=== PATIENT | male | born 1975 | race Caucasian/White ===

== ENCOUNTER 2018-01-26 09:36 | Day surgery (SDC) | payer OTHER ==
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
[2018-01-26] MEDS ORDERED: ACETAMINOPHEN 500 MG TAB PO ONE (09:42)
[2018-01-26] MEDS ORDERED: CLINDAMYCIN 900 MG/DEXTROSE 50 ML IV ONE (09:42)
[2018-01-26] MEDS ORDERED: PREGABALIN 150 MG CAP PO ONE (09:42)
[2018-01-26] MEDS ORDERED: BUPIVACAINE 0.25% 30 ML SDV ONE (09:56)
[2018-01-26] MEDS ORDERED: EPINEPHrine 30 MG/30 ML MDV (0.1 MG/0.1 ML) ONE ×2 (09:57→10:52)
[2018-01-26] MEDS ORDERED: LR 1,000 ML IV ONE (10:30)
[2018-01-26] MEDS ORDERED: MIDAZOLAM 2 MG/2 ML VIAL ONE (11:23)
[2018-01-26] MEDS ORDERED: SCOPOLAMINE HYDROBROMIDE 1 MG/3 DAYS PATCH TD ONE ×2 (11:23→11:30)
[2018-01-26] MEDS ORDERED: MIDAZOLAM 2 MG/2 ML VIAL IVP ONE (11:27)
--- NOTE | 2018-01-26 11:28 | PDANEPAE ---
ANE Past Medical History - Cardiovascular History Hx Hypertension: No Hx Arrhythmias: No Hx Chest Pain: No Hx Coronary Artery / Peripheral Vascular Disease: No Hx CHF / Valvular Disease: No Hx Palpitations: No - Pulmonary History Hx COPD: No Hx Asthma/Reactive Airway Disease: No Hx Recent Upper Respiratory Infection: No Hx Oxygen in Use at Home: No Hx Sleep Apnea: No Sleep Apnea Screening Result - Last Documented: Negative Pulmonary History Comment: BRONCHITIS IN PAST - Neurologic History Hx Cerebrovascular Accident: No Hx Seizures: No Hx Dementia: No - Endocrine History Hx Diabetes: No - Renal History Hx Renal Disorders: No Renal History Comment: KIDNEY STONE A998 - Liver History Hx Hepatic Disorders: No - Neurological & Psychiatric Hx Hx Neurological and Psychiatric Disorders: No Neurological / Psychiatric History Comment: ANXIETY - Cancer History Hx Cancer: No - Congenital Disorder History Hx Congenital Disorders: No - GI History Hx Gastrointestinal Disorders: No - Other Health History Other Health History: NEG - Chronic Pain History Chronic Pain: No - Surgical History Prior Surgeries: L HIP ARTHROSCOPY/ LABARAL REPAIR. SHRADDHA KNEE SURGERY ANE Review of Systems Review of Systems: - Exercise capacity METS (RN): 5 METS ANE Patient History - Allergies Allergies/Adverse Reactions: amoxicillin trihydrate [From Augmentin] Allergy (Verified 12/22/17 12:12) AWOKE HYPERVENTILATING - Home Medications Home Medications: Violetta Allergy 12/22/17 [Last Taken 01/23/18] Flonase Nasal [place] 12/22/17 [Last Taken 01/25/18] - NPO status NPO Since - Liquids (Date): 01/26/18 NPO Since - Liquids (Time): 08:00 NPO Since - Solids (Date): 01/25/18 NPO Since - Solids (Time): 23:00 - Smoking Hx Smoking Status: Never smoked - Family Anes Hx Family Hx Anesthesia Complications: NEG ANE Labs/Vital Signs - Vital Signs Blood Pressure: 137/75 Heart Rate: 62 Respiratory Rate: 14 O2 Sat (%): 96 Height: 172.72 cm Weight: 80.286 kg ANE Physical Exam - Airway Neck exam: FROM Mallampati Score: Class 1 Mouth exam: normal dental/mouth exam - Pulmonary Pulmonary: no respiratory distress - Cardiovascular Cardiovascular: regular rate and rhythym - ASA Status ASA Status: I ANE Anesthesia Plan Anesthesia Plan: general endotracheal anesthesia
[2018-01-26] MEDS ORDERED: fentaNYL 250 MCG/5 ML INJ ONE (11:39)
[2018-01-26] MEDS ORDERED: PROPOFOL 200 MG/20 ML VIAL ONE ×4 (11:40→15:08)
[2018-01-26] MEDS ORDERED: ROCURONIUM 50 MG/5 ML VIAL ONE ×2 (11:54)
[2018-01-26] MEDS ORDERED: DEXAMETHASONE 4 MG/ML VIAL ONE (11:59)
[2018-01-26] MEDS ORDERED: ONDANSETRON 4 MG/2 ML VIAL ONE ×2 (11:59→17:36)
[2018-01-26] MEDS ORDERED: LIDOCAINE 2% 100 MG/5 ML SYR ONE (11:59)
[2018-01-26] MEDS ORDERED: GLYCOPYRROLATE 0.2 MG/1 ML VIAL ONE (12:04)
[2018-01-26] MEDS ORDERED: RANITIDINE 50 MG/2 ML VIAL ONE (12:05)
[2018-01-26] MEDS ORDERED: ePHEDrine SULFATE 25 MG/5 ML SYR ONE (12:05)
[2018-01-26] MEDS ORDERED: METOCLOPRAMIDE 10 MG/2 ML VIAL ONE (12:28)
[2018-01-26] MEDS ORDERED: PROPOFOL/EMULSION 500 MG/50 ML BOTTLE IV ONE (13:32)
[2018-01-26] MEDS ORDERED: fentaNYL 100 MCG/2 ML INJ ONE (13:37)
[2018-01-26] MEDS ORDERED: fentaNYL 100 MCG/2 ML INJ IVP PRN (15:34)
[2018-01-26] MEDS ORDERED: LR 500 ML IV PRN (15:34)
[2018-01-26] MEDS ORDERED: NALOXONE HCL 0.4 MG/ML INJ IVP PRN (15:34)
[2018-01-26] MEDS ORDERED: PROMETHAZINE HCL 25 MG/ML INJ IVP PRN (15:34)
[2018-01-26] MEDS ORDERED: ONDANSETRON 4 MG/2 ML VIAL IVP PRN (15:34)
--- NOTE | 2018-01-26 15:45 | POSTOPPROG ---
Post Op Note Date of Operation: 01/26/18 Surgeon: Armond Gaspar Offline Editor: Dr. Monroy Anesthesia: GET(General Endotracheal) Pre-op Diagnosis: Right ARLINE Post-op Diagnosis: Same Procedure: Right Hip Arthroscopy Inf/Abcess present in the surg proc area at time of surgery?: No
--- NOTE | 2018-01-26 15:58 | POSTANESTH ---
Post Anesthetic Evaluation Cardiovascular Status: Normal, Stable Respiratory Status: Normal, Stable Level of Consciousness/Mental Status: Mildly Sleepy, Arousable Pain Control: Adequate, Prn Tx Ordered Nausea/Vomiting Control: Adequate, Prn Tx Ordered Complications Possibly Related to Anesthesia: None Noted
[2018-01-26] MEDS ORDERED: HYDROCODONE/APAP 5/325 TAB ONE ×2 (17:11→18:00)
[2018-01-26] MEDS: HYDROCODONE/APAP 5/325 TAB PO PRN ×2 (17:12→18:01)
[2018-01-26 18:49] VITALS: BP 128/80
[2018-01-27] MEDS ORDERED: PATCH REMOVAL 1 EA PATCH TD ONE (11:27)
== END 2018-01-26 18:48 | disposition home or self-care (01) ==
LOC: FSGY 09:36
PROVIDERS: ATTEND Orthopaedic Surgery Sports Medicine
DX: S73.192A Other sprain of left hip, initial encounter (principal); M25.851 Other specified joint disorders, right hip; M24.10 Other articular cartilage disorders, unspecified site; X58.XXXA Exposure to other specified factors, initial encounter
CPT/HCPCS: C1713; J0171; J1100; J2001; J2250; J2405; J2704; J2765; J2780; J3010